=== PATIENT | female | born 1970 | race Caucasian/White ===

== ENCOUNTER 2016-09-01 22:09 | Emergency (ER) | payer OTHER ==
[~2016-09-01] VITALS: Ht 157.5 cm; Wt 131.1 kg
[~2016-09-01 22:09] MED LIST: ADVIL,NUPRIN,M200 MG PO; ALBUTEROL SULF8.5 GM IH; AMBIEN10 MG PO; BACTRIM,SEPT1 TABLET PO; CIPRO750 MG PO; CLEOCIN300 MG PO; FLAGYL500 MG PO; FLOMAX0.4 MG PO; HYDROCODON-ACE1 EAC7 PO; KEFLEX500 MG PO; MOBIC15 MG PO; NAPROXEN500 MG PO; NOHOMEMEDS; NORCO 5/3251 TABLET PO; PERCOCET 5/31 TABLET PO; PREDNISONE20 MG PO; TESSALON PERLE100 MG PO; TESSALON200 MG PO; TOPAMAX200 MG PO; TOPAMAX50 MG PO; VICODIN,LORT1 TABLET PO; ZITHROMAX Z-PA250 MG PO; ZOFRAN ODT4 MG PO; ZOFRAN4 MG PO
[2016-09-02] MEDS ORDERED: PREDNISONE10 MG PO (00:09)
[2016-09-02] MEDS ORDERED: BENADRYL50 MG PO (00:09)
[2016-09-02 00:17] VITALS: BP 129/77
== END 2016-09-02 00:20 | disposition home or self-care (01) ==
LOC: EME 22:09 → RME 22:09
DX: L23.7 Allergic contact dermatitis due to plants, except food (principal)
CPT/HCPCS: 99281; 99283; J7512

== ENCOUNTER 2016-09-15 17:02 | Emergency (ER) | payer OTHER ==
[~2016-09-15] VITALS: Ht 157.5 cm; Wt 132.3 kg
[~2016-09-15 17:02] MED LIST changes: +BENADRYL50 MG PO; +PREDNISONE10 MG PO
[2016-09-15 17:59] LABS: EOSINOPHIL (%) 1.7 % (0-5); EOSINOPHIL COUNT 0.1 K/uL (0-0.3); IMMATURE GRANULOCYTE (%) 0.7 % (0.0-0.7); IMMATURE GRANULOCYTE COUNT 0.1 K/uL; LYMPHOCYTE COUNT 2.5 K/uL (1.0-2.8); MCH 27.3 PG (29.0-34.0); MCV 85.3 FL (83-99); MEAN PLAT.VOLUME 9.7 uM^3 (9.5-12.4); MONOCYTE (%) 7.5 % (3-12); MONOCYTE COUNT 0.6 K/uL (0-0.8); NEUTROPHIL (%) 59.7 % (45-76); PLATELET COUNT 166 K/uL (156-360); RBC DIS.WIDTH-CV 13.9 % (11.8-14.6); RBC DIS.WIDTH-SD 43.1 % (39-53); RED BLOOD COUNT 4.69 M/uL (3.80-5.20); WHITE BLOOD COUNT 8.4 K/uL (4.1-10.2)
[2016-09-15 18:07] LABS: CHLORIDE 105 mEq/L (99-109); POTASSIUM 3.8 mEq/L (3.7-5.4); SODIUM 137 mEq/L (136-147)
[2016-09-15 18:08] LABS: GLUCOSE 176 mg/dL (70-99)
[2016-09-15 18:10] LABS: ANION GAP 9 MEQ/L (2-14)
[2016-09-15 18:12] LABS: GFR ESTIMATE (CALCULATED) > 59 mL/min/
[2016-09-15 18:13] LABS: UREA NITROGEN (BUN) 14 mg/dL (9-23)
[2016-09-15] MEDS ORDERED: KEFLEX500 MG PO (18:49)
[2016-09-15] MEDS ORDERED: BACTRIM,SEPT1 TABLET PO (18:53)
[2016-09-15 19:13] VITALS: BP 147/93
== END 2016-09-15 19:13 | disposition home or self-care (01) ==
LOC: EME 17:02
DX: L03.115 Cellulitis of right lower limb (principal); G40.909 Epilepsy, unspecified, not intractable, without status epilepticus; K21.9 Gastro-esophageal reflux disease without esophagitis; R73.09 Other abnormal glucose; E66.9 Obesity, unspecified; Z68.43 Body mass index [BMI] 50.0-59.9, adult; R03.0 Elevated blood-pressure reading, without diagnosis of hypertension; Z88.0 Allergy status to penicillin
CPT/HCPCS: 80048; 85025; 99281; 99283

== ENCOUNTER → 2016-12-02 | Outpatient (CLI) | payer OTHER ==
[2016-12-02 16:26] LABS: APPEARANCE CLEAR/COLORLESS; RED CELL COUNT 122 /MM^3 (0-1); RED CELL DILUTION 1; WBC DILUTION 1; WHITE CELL COUNT 1 /MM^3 (0-5); WHITE CELL RAW COUNT 1
[2016-12-02 16:27] LABS: CSF EOSINOPHILS ND % (0-25); MONONUCLEAR WBC'S ND % (50-90); POLYNUCLEAR WBC'S ND % (0-3)
[2016-12-02 16:46] LABS: APPEARANCE (RECHECK) CLEAR/COLORLESS; CSF TUBE NUMBER (RECHECK) TUBE #1; RED CELL COUNT (RECHECK) 405 /MM^3 (0-1); RED CELL DILUTION 1
== END | disposition home or self-care (01) ==
LOC: RAD 14:45
PROVIDERS: Radiology Diagnostic Radiology
PROC: 009U3ZZ Drainage of Spinal Canal, Percutaneous Approach (ICD-10-PCS; principal; 2016-12-02)
DX: B99.9 Unspecified infectious disease (principal); G93.2 Benign intracranial hypertension
CPT/HCPCS: 62270; 77003; 82945; 84157; 87070; 87205; 89051

== ENCOUNTER 2017-02-13 07:52 | Emergency (ER) | payer OTHER ==
[~2017-02-13] VITALS: Ht 157.5 cm; Wt 129.7 kg
[2017-02-13 08:52] LABS: INFLUENZA A VIRAL ANTIGEN NEGATIVE; INFLUENZA B VIRAL ANTIGEN NEGATIVE
[2017-02-13] MEDS ORDERED: TESSALON200 MG PO (09:01)
[2017-02-13 09:12] VITALS: BP 142/89
== END 2017-02-13 09:14 | disposition home or self-care (01) ==
LOC: EME 07:52
PROVIDERS: Nurse Practitioner Family
DX: R05 Cough (principal); K21.9 Gastro-esophageal reflux disease without esophagitis; R56.9 Unspecified convulsions; F41.9 Anxiety disorder, unspecified; Z88.0 Allergy status to penicillin
CPT/HCPCS: 71020; 87502; 99281; 99284

== ENCOUNTER 2017-11-18 20:32 | Emergency (ER) | payer OTHER ==
[~2017-11-18] VITALS: Ht 157.5 cm; Wt 132.0 kg
[2017-11-18 20:37] VITALS: BP 152/95
== END 2017-11-18 22:31 | disposition left against medical advice (07) ==
LOC: EME 20:32
DX: R42 Dizziness and giddiness (principal); Z53.21 Procedure and treatment not carried out due to patient leaving prior to being seen by health care provider